=== PATIENT | male | born 1935 | race Caucasian/White ===

== ENCOUNTER 2017-08-15 01:06 | Inpatient (IN) ==
[2017-08-15] MEDS ORDERED: NITROGLYCERIN SL 0.4 MG TABLET SL PRN (04:27)
[2017-08-15] MEDS ORDERED: ALBUTEROL/IPRATROPIUM 3 ML NEB RESP TX ONE (04:27)
[2017-08-15] MEDS ORDERED: guaiFENesin/DM ER 600-30 MG TABLET PO PRN (04:27)
[2017-08-15] MEDS ORDERED: ACETAMINOPHEN 325 MG TABLET PO PRN (04:27)
[2017-08-15 04:38] LABS: ABG Base Excess 5.2 MMOL/L (-2.5-2.5); ABG HCO3 29.1 MMOL/L (20-26); ABG Oxygen Saturation 97.8 % (95-100); ABG PCO2 40.2 MM HG (35-48); ABG TCO2 25.6 MMOL/L (23-27)
[2017-08-15 05:53] LABS: Basophils % 0.3 % (0.0-0.8); Hematocrit 36.7 VOL% (42.0-52.0); Hemoglobin 12.6 GM/DL (14.0-18.0); Immature Granulocytes % 2.8 %; Immature Granulocytes Absolute 0.37 #; Lymphocytes # 0.6 10*3/uL (1.4-4.0); Lymphocytes % 4.4 % (21.2-54.2); Mean Corpuscular HGB Conc 34.3 GM/DL (32-36); Mean Corpuscular Hemoglobin 36 PG (27-34); Mean Corpuscular Volume 104.9 FL (87-102); Mean Platelet Volume 10.5 FL (9.6-12.0); Monocytes # 1.1 10*3/uL (0.11-0.8); Monocytes % 8.4 % (1.7-12.7); Neutrophils # 11.1 10*3/uL (1.4-7.4); Neutrophils % 84.1 % (38.7-73.9); Platelet Count 155 T/CUMM (130-400); Red Cell Distribution Width 18.4 % (9.3-17.3); White Blood Count 13.2 T/CUMM (4-12)
[2017-08-15 06:17] LABS: Blood Urea Nitrogen 19 MG/DL (7-18); Calcium 7.8 MG/DL (8.5-10.1); Glucose 94 MG/DL (74-106); Magnesium 2.1 MG/DL (1.8-2.4); Osmolality,Calculated 282.3 MOS/KG (273-304); Potassium 3.7 MMOL/L (3.5-5.1); Sodium 141 MMOL/L (136-145); Troponin I Only < 0.015 NG/ML (0.00-0.045)
[2017-08-15 06:18] LABS: Band Neutrophils 4 % (0-10); Lymphocytes 3 % (20-55); Myelocytes 2 %; Segmented Neutrophils 83 % (50-85); Total Cells Counted 100
[2017-08-15 06:19] LABS: Hypochromasia 1+; Macrocytosis 1+; Platelet Estimate Decreased
[2017-08-15 06:30] LABS: Alanine Aminotransferase 221 U/L (16-61); Alkaline Phosphatase 93 U/L (45-117); Aspartate Amino Transferase 118 U/L (0-37); Blood Urea Nitrogen 19 MG/DL (7-18); Calcium 7.7 MG/DL (8.5-10.1); Glucose 90 MG/DL (74-106); Osmolality,Calculated 280.4 MOS/KG (273-304); Potassium 3.6 MMOL/L (3.5-5.1); Sodium 140 MMOL/L (136-145); Total Protein 5.3 G/DL (6.4-8.3); Troponin I Only < 0.015 NG/ML (0.00-0.045)
[2017-08-15 06:38] LABS: Cholesterol 101 MG/DL (50-200); Free T4 (Free Thyroxine) 1.59 NG/DL (0.76-1.46); HDL Cholesterol 21 MG/DL (40-60); Risk Ratio 4.81; Triglycerides 103 MG/DL (2-150); Troponin I Only 0.016 NG/ML (0.00-0.045); VLDL CHOLESTEROL 20.6 MG/DL
[2017-08-15] MEDS: methylPREDNISolone SOD SUC 125 MG/2 ML VIAL IV SCH ×3 (06:43→21:58)
[2017-08-15] MEDS: PIPERACILLIN/TAZOBACTAM 3,375 MG in SODIUM CHLORIDE 0.9% 100 ML IV SCH ×3 (06:44→21:57)
[2017-08-15 07:00] LABS: Apearance,Urine CLEAR (Clear); Bilirubin,Urine Negative (Negative); Blood, Urine Small mg/dL (Negative); Glucose,Urine (UA) Negative (Negative); Ketones,Urine Negative (Negative); Mucus,Urine Occasional /LPF (Occasional); Nitrite,Urine Negative (Negative); Protein,Urine 30 MG/DL; RBC,Urine 2 /HPF (0-4); Squamous Epithelial Cell,Urine Occasional /HPF (0-10); Urine Color Yellow (Yellow); Urine Specific Gravity 1.039 (1.001-1.035); Urine Urobilinogen < 2.0 EU/DL (0.2-1.0); WBC,Urine <1 /HPF (0-6)
[2017-08-15] MEDS ORDERED: FUROSEMIDE 40 MG/4 ML VIAL IV ONE (07:09)
[2017-08-15] MEDS ORDERED: FUROSEMIDE 40 MG TABLET PO SCH (09:00)
[2017-08-15] MEDS ORDERED: AMIODARONE 200 MG TABLET PO SCH (09:00)
[2017-08-15] MEDS ORDERED: METOPROLOL TARTRATE 25 MG TABLET PO SCH (09:00)
[2017-08-15] MEDS: ASPIRIN EC 81 MG TABLET PO SCH (09:12)
[2017-08-15] MEDS: CLOPIDOGREL 75 MG TABLET PO SCH (09:13)
[2017-08-15] MEDS: PANTOPRAZOLE 40 MG TABLET PO SCH (09:14)
[2017-08-15] MEDS: LISINOPRIL 5 MG TABLET PO SCH (09:44)
[2017-08-15] MEDS: ENOXAPARIN 40 MG/0.4 ML SYRINGE SUBCUT SCH (14:29)
[2017-08-15] MEDS: ZINC OXIDE PASTE 113 GM TUBE TOP SCH ×2 (14:37→21:58)
[2017-08-15] MEDS: FUROSEMIDE 40 MG/4 ML VIAL IV SCH (17:05)
[2017-08-15] MEDS: SIMVASTATIN 20 MG TABLET PO SCH (17:07)
[2017-08-15] MEDS: NIACIN ER 500 MG TABLET PO SCH (21:57)
[2017-08-15] MEDS: DUTASTERIDE 0.5 MG CAPSULE PO SCH (21:58)
[2017-08-15] MEDS: METOPROLOL TARTRATE 25 MG TABLET PO SCH (21:58)
[2017-08-16] MEDS: MORPHINE 2 MG/1 ML SYRINGE IV PRN (02:06)
[2017-08-16 05:25] LABS: Basophils % 0.1 % (0.0-0.8); Hematocrit 38.3 VOL% (42.0-52.0); Hemoglobin 12.9 GM/DL (14.0-18.0); Immature Granulocytes % 2.5 %; Immature Granulocytes Absolute 0.33 #; Lymphocytes # 0.5 10*3/uL (1.4-4.0); Lymphocytes % 3.7 % (21.2-54.2); Mean Corpuscular HGB Conc 33.7 GM/DL (32-36); Mean Corpuscular Hemoglobin 35 PG (27-34); Mean Corpuscular Volume 104.4 FL (87-102); Mean Platelet Volume 10.4 FL (9.6-12.0); Monocytes # 0.7 10*3/uL (0.11-0.8); Monocytes % 5.7 % (1.7-12.7); Neutrophils # 11.5 10*3/uL (1.4-7.4); Platelet Count 138 T/CUMM (130-400); Red Blood Count 3.67 MC/CUMM (3.8-5.5); White Blood Count 13.1 T/CUMM (4-12)
[2017-08-16 06:04] LABS: Giant Platelets Few; Hypochromasia 1+; Lymphocytes 6 % (20-55); Platelet Estimate Normal; Segmented Neutrophils 86 % (50-85); Total Cells Counted 100
[2017-08-16 06:05] LABS: Macrocytosis Slight; Ovalocytes Slight
[2017-08-16 06:27] LABS: Alanine Aminotransferase 206 U/L (16-61); Albumin 1.9 G/DL (3.4-5.0); Alkaline Phosphatase 102 U/L (45-117); Aspartate Amino Transferase 106 U/L (0-37); Blood Urea Nitrogen 26 MG/DL (7-18); Calcium 7.4 MG/DL (8.5-10.1); Glucose 115 MG/DL (74-106); Osmolality,Calculated 280.7 MOS/KG (273-304); Potassium 3.9 MMOL/L (3.5-5.1); Sodium 138 MMOL/L (136-145); Total Protein 5.2 G/DL (6.4-8.3)
[2017-08-16] MEDS: methylPREDNISolone SOD SUC 125 MG/2 ML VIAL IV SCH ×3 (06:53→23:14)
[2017-08-16] MEDS: PIPERACILLIN/TAZOBACTAM 3,375 MG in SODIUM CHLORIDE 0.9% 100 ML IV SCH ×3 (06:54→23:14)
[2017-08-16] MEDS: CLOPIDOGREL 75 MG TABLET PO SCH (08:53)
[2017-08-16] MEDS: LISINOPRIL 5 MG TABLET PO SCH (08:53)
[2017-08-16] MEDS: PANTOPRAZOLE 40 MG TABLET PO SCH (08:53)
[2017-08-16] MEDS: METOPROLOL TARTRATE 25 MG TABLET PO SCH ×2 (08:53→21:40)
[2017-08-16] MEDS: FUROSEMIDE 40 MG/4 ML VIAL IV SCH ×2 (08:53→16:34)
[2017-08-16] MEDS: ZINC OXIDE PASTE 113 GM TUBE TOP SCH ×2 (08:54→21:41)
[2017-08-16] MEDS: ENOXAPARIN 40 MG/0.4 ML SYRINGE SUBCUT SCH (08:54)
[2017-08-16] MEDS: ASPIRIN EC 81 MG TABLET PO SCH (08:54)
[2017-08-16] MEDS ORDERED: INFLUENZA VIRUS VACCINE 0.5 ML SYRINGE IM ONE (09:00)
[2017-08-16] MEDS: SIMVASTATIN 20 MG TABLET PO SCH (16:48)
[2017-08-16] MEDS: AZITHROMYCIN INJ 500 MG in SODIUM CHLORIDE 0.9% 250 ML IV SCH (16:48)
[2017-08-16] MEDS: SALIVA SUBSTITUTE SPRAY 60 ML CAN SWISH/SWAL PRN (21:41)
[2017-08-16] MEDS: NIACIN ER 500 MG TABLET PO SCH (21:41)
[2017-08-16] MEDS: DUTASTERIDE 0.5 MG CAPSULE PO SCH (21:43)
[2017-08-17] MEDS: methylPREDNISolone SOD SUC 125 MG/2 ML VIAL IV SCH ×3 (06:02→21:10)
[2017-08-17] MEDS: PIPERACILLIN/TAZOBACTAM 3,375 MG in SODIUM CHLORIDE 0.9% 100 ML IV SCH ×3 (06:02→21:11)
[2017-08-17] MEDS: SALIVA SUBSTITUTE SPRAY 60 ML CAN SWISH/SWAL PRN (06:03)
[2017-08-17] MEDS: ENOXAPARIN 40 MG/0.4 ML SYRINGE SUBCUT SCH (08:31)
[2017-08-17] MEDS: FUROSEMIDE 40 MG/4 ML VIAL IV SCH ×2 (08:31→15:55)
[2017-08-17] MEDS: CLOPIDOGREL 75 MG TABLET PO SCH (08:32)
[2017-08-17] MEDS: ZINC OXIDE PASTE 113 GM TUBE TOP SCH ×2 (08:32→21:10)
[2017-08-17] MEDS: LISINOPRIL 5 MG TABLET PO SCH (08:32)
[2017-08-17] MEDS: PANTOPRAZOLE 40 MG TABLET PO SCH (08:32)
[2017-08-17] MEDS: ASPIRIN EC 81 MG TABLET PO SCH (08:32)
[2017-08-17] MEDS: METOPROLOL TARTRATE 25 MG TABLET PO SCH ×2 (08:32→21:06)
[2017-08-17 09:39] LABS: Calcium 7.7 MG/DL (8.5-10.1); Magnesium 2.9 MG/DL (1.8-2.4); Osmolality,Calculated 293.1 MOS/KG (273-304); Potassium 3.6 MMOL/L (3.5-5.1)
[2017-08-17] MEDS: AZITHROMYCIN INJ 500 MG in SODIUM CHLORIDE 0.9% 250 ML IV SCH (15:42)
[2017-08-17] MEDS: SIMVASTATIN 20 MG TABLET PO SCH (17:36)
[2017-08-17] MEDS: DUTASTERIDE 0.5 MG CAPSULE PO SCH (21:06)
[2017-08-17] MEDS: NIACIN ER 500 MG TABLET PO SCH (21:06)
[2017-08-18 04:59] LABS: Calcium 7.6 MG/DL (8.5-10.1); Magnesium 2.7 MG/DL (1.8-2.4); Osmolality,Calculated 292.1 MOS/KG (273-304); Potassium 3.9 MMOL/L (3.5-5.1)
[2017-08-18] MEDS: methylPREDNISolone SOD SUC 125 MG/2 ML VIAL IV SCH ×3 (05:55→21:42)
[2017-08-18] MEDS: PIPERACILLIN/TAZOBACTAM 3,375 MG in SODIUM CHLORIDE 0.9% 100 ML IV SCH ×3 (05:58→21:42)
[2017-08-18] MEDS: FUROSEMIDE 40 MG/4 ML VIAL IV SCH ×2 (09:20→17:23)
[2017-08-18] MEDS: ASPIRIN EC 81 MG TABLET PO SCH (09:22)
[2017-08-18] MEDS: ENOXAPARIN 40 MG/0.4 ML SYRINGE SUBCUT SCH (09:23)
[2017-08-18] MEDS: LISINOPRIL 5 MG TABLET PO SCH (09:23)
[2017-08-18] MEDS: METOPROLOL TARTRATE 25 MG TABLET PO SCH ×2 (09:23→21:15)
[2017-08-18] MEDS: CLOPIDOGREL 75 MG TABLET PO SCH (09:23)
[2017-08-18] MEDS: ZINC OXIDE PASTE 113 GM TUBE TOP SCH ×2 (09:23→21:17)
[2017-08-18] MEDS: metOLazone 2.5 MG TABLET PO SCH (09:24)
[2017-08-18] MEDS: PANTOPRAZOLE 40 MG TABLET PO SCH (09:26)
[2017-08-18] MEDS: SIMVASTATIN 20 MG TABLET PO SCH (17:23)
[2017-08-18] MEDS: AZITHROMYCIN INJ 500 MG in SODIUM CHLORIDE 0.9% 250 ML IV SCH (17:23)
[2017-08-18] MEDS ORDERED: ETOMIDATE 20 MG/10 ML VIAL IV ONE ×2 (19:45→19:50)
[2017-08-18] MEDS ORDERED: SUCCINYLCHOLINE 200 MG/10 ML VIAL ONE (19:45)
[2017-08-18] MEDS ORDERED: SUCCINYLCHOLINE 200 MG/10 ML VIAL IV ONE (19:50)
[2017-08-18] MEDS ORDERED: PROPOFOL 1,000 MG/100 ML BOTTLE IV ONE (20:11)
[2017-08-18 21:10] LABS: Allen Test Positive; Pt O2 Delivery Device Ventilator
[2017-08-18 21:11] LABS: ABG Base Excess 9.6 MMOL/L (-2.5-2.5); ABG HCO3 36.2 MMOL/L (20-26); ABG Oxygen Saturation 98.3 % (95-100); ABG PCO2 57.8 MM HG (35-48); ABG PH 7.415 (7.35-7.45); ABG PO2 129.8 MM HG (80-95)
[2017-08-18] MEDS: DUTASTERIDE 0.5 MG CAPSULE PO SCH (21:12)
[2017-08-18] MEDS: NIACIN ER 500 MG TABLET PO SCH (21:13)
[2017-08-18] MEDS: PROPOFOL 1,000 MG/100 ML BOTTLE IV SCH (21:17)
[2017-08-18 22:12] LABS: Apearance,Urine CLEAR (Clear); Bilirubin,Urine Negative (Negative); Blood, Urine Small mg/dL (Negative); Glucose,Urine (UA) Negative (Negative); Hyaline Casts,Urine 12 /LPF (0-3); Ketones,Urine Negative (Negative); Nitrite,Urine Negative (Negative); Protein,Urine Negative; RBC,Urine 1 /HPF (0-4); Urine Color Straw (Yellow); Urine Specific Gravity 1.006 (1.001-1.035); Urine Urobilinogen < 2.0 EU/DL (0.2-1.0); WBC,Urine <1 /HPF (0-6)
[2017-08-19 03:37] LABS: ABG Base Excess 7.3 MMOL/L (-2.5-2.5); ABG HCO3 31.1 MMOL/L (20-26); ABG Oxygen Saturation 97.3 % (95-100); ABG PCO2 61.2 MM HG (35-48); ABG PH 7.367 (7.35-7.45); ABG TCO2 30.7 MMOL/L (23-27)
[2017-08-19 05:34] LABS: Calcium 7.2 MG/DL (8.5-10.1); Magnesium 2.9 MG/DL (1.8-2.4); Osmolality,Calculated 295.1 MOS/KG (273-304); Potassium 3.5 MMOL/L (3.5-5.1)
[2017-08-19] MEDS: methylPREDNISolone SOD SUC 125 MG/2 ML VIAL IV SCH ×3 (06:08→21:30)
[2017-08-19] MEDS: PIPERACILLIN/TAZOBACTAM 3,375 MG in SODIUM CHLORIDE 0.9% 100 ML IV SCH ×3 (06:09→21:31)
[2017-08-19 07:25] LABS: ABG Base Excess 7.6 MMOL/L (-2.5-2.5); ABG HCO3 31.3 MMOL/L (20-26); ABG Oxygen Saturation 96.9 % (95-100); ABG PCO2 55.7 MM HG (35-48); ABG PH 7.398 (7.35-7.45); ABG PO2 92.5 MM HG (80-95); ABG TCO2 30.2 MMOL/L (23-27)
[2017-08-19] MEDS: FUROSEMIDE 40 MG/4 ML VIAL IV SCH ×2 (08:31→16:22)
[2017-08-19] MEDS: PROPOFOL 1,000 MG/100 ML BOTTLE IV SCH ×4 (08:37→23:44)
[2017-08-19] MEDS: ENOXAPARIN 40 MG/0.4 ML SYRINGE SUBCUT SCH (09:25)
[2017-08-19] MEDS: METOPROLOL TARTRATE 25 MG TABLET PO SCH ×2 (09:25→21:30)
[2017-08-19] MEDS: LISINOPRIL 5 MG TABLET PO SCH (09:25)
[2017-08-19] MEDS: ASPIRIN EC 81 MG TABLET PO SCH (09:25)
[2017-08-19] MEDS: CLOPIDOGREL 75 MG TABLET PO SCH (09:25)
[2017-08-19] MEDS: metOLazone 2.5 MG TABLET PO SCH (09:25)
[2017-08-19] MEDS: PANTOPRAZOLE 40 MG TABLET PO SCH (09:26)
[2017-08-19] MEDS: LANSOPRAZOLE ODT 30 MG TABLET PO SCH (09:27)
[2017-08-19] MEDS: ZINC OXIDE PASTE 113 GM TUBE TOP SCH ×2 (14:35→21:30)
[2017-08-19] MEDS: SIMVASTATIN 20 MG TABLET PO SCH (16:20)
[2017-08-19] MEDS: AZITHROMYCIN INJ 500 MG in SODIUM CHLORIDE 0.9% 250 ML IV SCH (16:22)
[2017-08-19] MEDS: NIACIN ER 500 MG TABLET PO SCH (20:01)
[2017-08-19] MEDS: DUTASTERIDE 0.5 MG CAPSULE PO SCH (20:01)
[2017-08-19] MEDS: POTASSIUM CHLORIDE RIDER 20 MEQ in PREMIX 1 EACH IV PRN (23:17)
[2017-08-20] MEDS: POTASSIUM CHLORIDE RIDER 10 MEQ in PREMIX 1 EACH IV PRN ×3 (01:15→14:18)
[2017-08-20] MEDS: MORPHINE 2 MG/1 ML SYRINGE IV PRN ×2 (02:27→13:52)
[2017-08-20 03:24] LABS: Allen Test Positive; Pt O2 Delivery Device Ventilator
[2017-08-20 03:26] LABS: ABG Base Excess 11.1 MMOL/L (-2.5-2.5); ABG HCO3 37.2 MMOL/L (20-26); ABG Oxygen Saturation 92.1 % (95-100); ABG PCO2 54.7 MM HG (35-48); ABG PO2 60.5 MM HG (80-95); ABG TCO2 38.8 MMOL/L (23-27)
[2017-08-20 05:26] LABS: Calcium 7.1 MG/DL (8.5-10.1); Magnesium 2.8 MG/DL (1.8-2.4); Osmolality,Calculated 296.5 MOS/KG (273-304)
[2017-08-20 05:39] LABS: Potassium 6.2 MMOL/L (3.5-5.1)
[2017-08-20] MEDS: PIPERACILLIN/TAZOBACTAM 3,375 MG in SODIUM CHLORIDE 0.9% 100 ML IV SCH ×3 (06:00→21:52)
[2017-08-20] MEDS: POTASSIUM CHLORIDE RIDER 20 MEQ in PREMIX 1 EACH IV PRN ×3 (06:30→21:58)
[2017-08-20] MEDS: methylPREDNISolone SOD SUC 125 MG/2 ML VIAL IV SCH ×3 (07:16→21:52)
[2017-08-20] MEDS: FUROSEMIDE 40 MG/4 ML VIAL IV SCH ×2 (08:15→08:20)
[2017-08-20] MEDS: ASPIRIN EC 81 MG TABLET PO SCH (10:09)
[2017-08-20] MEDS: CLOPIDOGREL 75 MG TABLET PO SCH (10:09)
[2017-08-20] MEDS: SALIVA SUBSTITUTE SPRAY 60 ML CAN SWISH/SWAL PRN ×2 (10:09→15:52)
[2017-08-20] MEDS: LISINOPRIL 5 MG TABLET PO SCH (10:09)
[2017-08-20] MEDS: METOPROLOL TARTRATE 25 MG TABLET PO SCH ×2 (10:09→21:52)
[2017-08-20] MEDS: ENOXAPARIN 40 MG/0.4 ML SYRINGE SUBCUT SCH (10:09)
[2017-08-20] MEDS: LANSOPRAZOLE ODT 30 MG TABLET PO SCH (10:10)
[2017-08-20] MEDS: PROPOFOL 1,000 MG/100 ML BOTTLE IV SCH ×3 (11:26→21:51)
[2017-08-20] MEDS: ZINC OXIDE PASTE 113 GM TUBE TOP SCH ×2 (15:51→21:52)
[2017-08-20] MEDS: SIMVASTATIN 20 MG TABLET PO SCH (16:16)
[2017-08-20] MEDS: AZITHROMYCIN INJ 500 MG in SODIUM CHLORIDE 0.9% 250 ML IV SCH (16:18)
[2017-08-20] MEDS: DUTASTERIDE 0.5 MG CAPSULE PO SCH (21:51)
[2017-08-20] MEDS: NIACIN ER 500 MG TABLET PO SCH (21:52)
[2017-08-21 04:23] LABS: ABG Base Excess 10.7 MMOL/L (-2.5-2.5); ABG HCO3 34.4 MMOL/L (20-26); ABG Oxygen Saturation 93.9 % (95-100); ABG PCO2 50.6 MM HG (35-48); ABG PH 7.465 (7.35-7.45); ABG PO2 71.9 MM HG (80-95); ABG TCO2 31.9 MMOL/L (23-27)
[2017-08-21 04:54] LABS: Basophils % 0.1 % (0.0-0.8); Hematocrit 37.2 VOL% (42.0-52.0); Hemoglobin 12.5 GM/DL (14.0-18.0); Immature Granulocytes Absolute 0.15 #; Lymphocytes # 0.4 10*3/uL (1.4-4.0); Lymphocytes % 2.6 % (21.2-54.2); Mean Corpuscular HGB Conc 33.6 GM/DL (32-36); Mean Corpuscular Hemoglobin 36 PG (27-34); Mean Corpuscular Volume 107.8 FL (87-102); Mean Platelet Volume 11.7 FL (9.6-12.0); Monocytes # 0.4 10*3/uL (0.11-0.8); Monocytes % 2.5 % (1.7-12.7); Neutrophils # 14.7 10*3/uL (1.4-7.4); Neutrophils % 93.8 % (38.7-73.9); Red Blood Count 3.45 MC/CUMM (3.8-5.5); Red Cell Distribution Width 17.9 % (9.3-17.3); White Blood Count 15.7 T/CUMM (4-12)
[2017-08-21 05:02] LABS: Platelet Count 85 T/CUMM (130-400)
[2017-08-21 05:35] LABS: Calcium 7.5 MG/DL (8.5-10.1); Magnesium 3.3 MG/DL (1.8-2.4); Osmolality,Calculated 317.6 MOS/KG (273-304); Potassium 3.4 MMOL/L (3.5-5.1)
[2017-08-21 05:37] LABS: Troponin I Only 0.181 NG/ML (0.00-0.045)
[2017-08-21 05:38] LABS: Hypochromasia Slight; Platelet Estimate Decreased; Segmented Neutrophils 98 % (50-85); Total Cells Counted 100
[2017-08-21 05:39] LABS: Giant Platelets Few; Microcytosis Slight
[2017-08-21] MEDS: PIPERACILLIN/TAZOBACTAM 3,375 MG in SODIUM CHLORIDE 0.9% 100 ML IV SCH ×3 (06:10→21:36)
[2017-08-21] MEDS: methylPREDNISolone SOD SUC 125 MG/2 ML VIAL IV SCH ×3 (06:10→21:35)
[2017-08-21] MEDS: PROPOFOL 1,000 MG/100 ML BOTTLE IV SCH ×6 (06:40→23:17)
[2017-08-21] MEDS ORDERED: LIDOCAINE 2% 20 ML VIAL RESP TX ONE (07:05)
[2017-08-21] MEDS ORDERED: LIDOCAINE 1% 20 ML VIAL MISC INJ ONE (07:05)
[2017-08-21] MEDS: MORPHINE 2 MG/1 ML SYRINGE IV PRN (09:39)
[2017-08-21] MEDS: LANSOPRAZOLE ODT 30 MG TABLET PO SCH (09:55)
[2017-08-21] MEDS: METOPROLOL TARTRATE 25 MG TABLET PO SCH ×3 (09:55→21:47)
[2017-08-21] MEDS: CLOPIDOGREL 75 MG TABLET PO SCH (09:56)
[2017-08-21] MEDS: LISINOPRIL 5 MG TABLET PO SCH (09:56)
[2017-08-21] MEDS: ENOXAPARIN 40 MG/0.4 ML SYRINGE SUBCUT SCH (09:56)
[2017-08-21] MEDS: ASPIRIN CHEW 81 MG TABLET PO SCH (09:56)
[2017-08-21] MEDS: FUROSEMIDE 40 MG/4 ML VIAL IV SCH (10:05)
[2017-08-21] MEDS: POTASSIUM CHLORIDE RIDER 20 MEQ in PREMIX 1 EACH IV PRN (10:19)
[2017-08-21] MEDS: ZINC OXIDE PASTE 113 GM TUBE TOP SCH ×2 (12:25→21:42)
[2017-08-21] MEDS: POTASSIUM CHLORIDE RIDER 10 MEQ in PREMIX 1 EACH IV PRN (12:37)
[2017-08-21] MEDS ORDERED: GLUCAGON 1 MG VIAL IM PRN (12:40)
[2017-08-21] MEDS ORDERED: DEXTROSE 50% 25 GM/50 ML VIAL IV PRN (12:40)
[2017-08-21] MEDS: ALBUTEROL/IPRATROPIUM 3 ML NEB RESP TX SCH ×2 (13:10→20:12)
[2017-08-21] MEDS: AZITHROMYCIN INJ 500 MG in SODIUM CHLORIDE 0.9% 250 ML IV SCH (16:14)
[2017-08-21] MEDS: SIMVASTATIN 20 MG TABLET PO SCH (16:14)
[2017-08-21] MEDS: SALIVA SUBSTITUTE SPRAY 60 ML CAN SWISH/SWAL PRN ×2 (16:17→21:40)
[2017-08-21] MEDS: INSULIN REGULAR 100 UNIT/ML SUBCUT SCH (18:21)
[2017-08-21] MEDS: DUTASTERIDE 0.5 MG CAPSULE PO SCH (21:31)
[2017-08-21] MEDS: NIACIN ER 500 MG TABLET PO SCH (21:32)
[2017-08-22] MEDS: INSULIN REGULAR 100 UNIT/ML SUBCUT SCH ×3 (00:17→12:44)
[2017-08-22] MEDS: ALBUTEROL/IPRATROPIUM 3 ML NEB RESP TX SCH ×3 (01:31→12:49)
[2017-08-22 03:12] LABS: ABG Base Excess 5.9 MMOL/L (-2.5-2.5); ABG HCO3 29.7 MMOL/L (20-26); ABG PCO2 62.2 MM HG (35-48); ABG PH 7.344 (7.35-7.45); ABG PO2 82.3 MM HG (80-95)
[2017-08-22] MEDS: PROPOFOL 1,000 MG/100 ML BOTTLE IV SCH ×2 (03:39→10:43)
[2017-08-22 04:13] LABS: Basophils % 0.1 % (0.0-0.8); Hematocrit 41.4 VOL% (42.0-52.0); Immature Granulocytes % 2.5 %; Immature Granulocytes Absolute 0.74 #; Lymphocytes # 0.3 10*3/uL (1.4-4.0); Mean Corpuscular HGB Conc 31.4 GM/DL (32-36); Mean Corpuscular Hemoglobin 35 PG (27-34); Mean Corpuscular Volume 112.8 FL (87-102); Mean Platelet Volume 11.7 FL (9.6-12.0); Monocytes # 1.2 10*3/uL (0.11-0.8); Monocytes % 3.9 % (1.7-12.7); NRBC # 0.02 10*3/uL; Neutrophils # 27.2 10*3/uL (1.4-7.4); Neutrophils % 92.5 % (38.7-73.9); Platelet Count 87 T/CUMM (130-400); Red Blood Count 3.67 MC/CUMM (3.8-5.5); Red Cell Distribution Width 18.3 % (9.3-17.3); White Blood Count 29.4 T/CUMM (4-12)
[2017-08-22 04:40] LABS: Calcium 7.9 MG/DL (8.5-10.1); Magnesium 3.6 MG/DL (1.8-2.4); Osmolality,Calculated 332.3 MOS/KG (273-304); Potassium 4.4 MMOL/L (3.5-5.1)
[2017-08-22 04:43] LABS: Phosphorous 5.9 MG/DL (2.5-4.9); Prealbumin 25.1 MG/DL (20-40)
[2017-08-22 05:09] LABS: Band Neutrophils 2 % (0-10); Lymphocytes 2 % (20-55); Segmented Neutrophils 91 % (50-85); Total Cells Counted 100
[2017-08-22 05:10] LABS: Hypochromasia 1+; Microcytosis Slight; Ovalocytes Slight; Platelet Estimate Decreased
[2017-08-22] MEDS: PIPERACILLIN/TAZOBACTAM 3,375 MG in SODIUM CHLORIDE 0.9% 100 ML IV SCH ×2 (05:38→15:20)
[2017-08-22] MEDS: methylPREDNISolone SOD SUC 125 MG/2 ML VIAL IV SCH ×2 (05:39→13:22)
[2017-08-22] MEDS ORDERED: FLUCONAZOLE INJ 100 MG in IV BAG 1 EACH IV SCH (08:00)
[2017-08-22] MEDS: ENOXAPARIN 40 MG/0.4 ML SYRINGE SUBCUT SCH (08:16)
[2017-08-22] MEDS: LANSOPRAZOLE ODT 30 MG TABLET PO SCH (08:17)
[2017-08-22] MEDS: LISINOPRIL 5 MG TABLET PO SCH (08:17)
[2017-08-22] MEDS: FUROSEMIDE 40 MG/4 ML VIAL IV SCH (08:17)
[2017-08-22] MEDS: ASPIRIN CHEW 81 MG TABLET PO SCH (08:18)
[2017-08-22] MEDS: ZINC OXIDE PASTE 113 GM TUBE TOP SCH (08:18)
[2017-08-22] MEDS: METOPROLOL TARTRATE 25 MG TABLET PO SCH (08:18)
[2017-08-22] MEDS: CLOPIDOGREL 75 MG TABLET PO SCH (08:18)
[2017-08-22 15:10] VITALS: BP 107/47
== END 2017-08-22 16:24 | DRG 208 ==
LOC: N.ICU 02:44 → SUATTDRO 02:44
PROVIDERS: ADMIT Hospitalist; ATTEND Hospitalist